=== PATIENT | female | born 1990 | race Asian ===

== ENCOUNTER 2016-12-05 23:24 | Emergency (ER) | payer OTHER ==
[2016-12-06] MEDS ORDERED: HYDROcodone/ACETAMIN 5-325 MG* 1 TAB PO ONE ×2 (00:59→01:15)
[2016-12-06 01:09] LABS: Hematocrit 37 % (35-47); Hemoglobin 12.4 g/dl (12.0-16.0); Mean Corpuscular HGB Conc 34 g/dl (31-36); Mean Corpuscular Hemoglobin 30 pg (27-31); Mean Corpuscular Volume 88 fL (80-97); Mean Platelet Volume 8 um3 (7.4-10.4); Red Blood Count 4.15 10^6/ul (4.0-5.4); Red Cell Distribution Width 12 % (10.5-15)
--- NOTE | 2016-12-06 01:14 | ED ---
fidelina Monae Timothy, scribed for Jonny Novoa MD on 12/06/16 at 0038 . Bite Injury/Animal - HPI Summary HPI Summary: Jennie Johnson is a 26 yo female presenting to [facility] with increased 9/10 pain in her left thumb and swelling S/P a dog bite 3 days ago (12/02/16). She is currently on ABx for her condition. Her Hx includes migraines. - History of Current Complaint Stated Complaint: DOG BITE Time Seen by Provider: 12/06/16 00:29 Hx Obtained From: Patient Onset of Injury: Happened days ago, Still Present Type of Bite: Pet Hx of Bite: Unprovoked Has Animal Been Immunized?: Unknown Severity Initially: Moderate Severity Currently: Moderate Pain Intensity: 9 Pain Scale Used: 0-10 Numeric Character: Puncture Aggravating Factor(s): Nothing Alleviating Factor(s): Nothing Associated Signs And Symptoms: Positive: Swelling Animal Available for Observation: No Animal Control Notified: No - Allergies/Home Medications Allergies/Adverse Reactions: Allergies Allergy/AdvReac Type Severity Reaction Status Date / Time Red Dye Allergy Rash Verified 12/05/16 23:35 PMH/Surg Hx/FS Hx/Imm Hx Neurological History: Reports: Hx Migraine Infectious Disease History: No Infectious Disease History: Denies: Traveled Outside the [place] in Last 30 Days - Social History Occupation: Student Lives: Alone Review of Systems Constitutional: Negative Eyes: Negative ENT: Negative Cardiovascular: Negative Respiratory: Negative Gastrointestinal: Negative Genitourinary: Negative Positive: Other - left thumb pain, swelling Skin: Negative Neurological: Negative Psychological: Normal All Other Systems Reviewed And Are Negative: Yes Physical Exam Triage Information Reviewed: Yes Vital Signs On Initial Exam: Initial Vitals Temp Pulse Resp BP Pulse Ox 99.2 F 69 18 126/84 100 12/05/16 23:31 12/05/16 23:31 12/05/16 23:31 12/05/16 23:31 12/05/16 23:31 Vital Signs Reviewed: Yes Appearance: Positive: Well-Appearing, No Pain Distress Skin: Positive: Warm Eyes: Positive: MAL ENT: Positive: Hearing grossly normal Respiratory/Lung Sounds: Positive: Breath Sounds Present Musculoskeletal: Positive: Other - rt thumb minimal erythema no purulence Neurological: Positive: Alert, Oriented to Person Place, Time Psychiatric: Positive: Affect/Mood Appropriate Diagnostics - Vital Signs Vital Signs Temp Pulse Resp BP Pulse Ox 12/05/16 23:31 99.2 F 69 18 126/84 100 - Laboratory Lab Results: Lab Results 12/06/16 Range/Units 00:58 WBC 8.0 (3.5-10.8) 10^3/ul RBC 4.15 (4.0-5.4) 10^6/ul Hgb 12.4 (12.0-16.0) g/dl Hct 37 (35-47) % MCV 88 (80-97) fL MCH 30 (27-31) pg MCHC 34 (31-36) g/dl RDW 12 (10.5-15) % Plt Count 252 (150-450) 10^3/ul MPV 8 (7.4-10.4) um3 Neut % (Auto) 58.4 (38-83) % Lymph % (Auto) 30.9 (25-47) % [place] % (Auto) 7.0 (1-9) % Eos % (Auto) 2.8 (0-6) % Baso % (Auto) 0.9 (0-2) % Absolute Neuts (auto) 4.7 (1.5-7.7) 10^3/ul Absolute Lymphs (auto) 2.5 (1.0-4.8) 10^3/ul Absolute Monos (auto) 0.6 (0-0.8) 10^3/ul Absolute Eos (auto) 0.2 (0-0.6) 10^3/ul Absolute Basos (auto) 0.1 (0-0.2) 10^3/ul Absolute Nucleated RBC 0 10^3/ul Nucleated RBC % 0 Result Diagrams: 12/06/16 00:58 Lab Statement: Any lab studies that have been ordered have been reviewed, and results considered in the medical decision making process. Bite Injury Course/Dx - Course Assessment/Plan: Jennie Johnson is a 26 yo female presenting to [facility] with a swollen and painful left thumb after a dog bite. After review of her lab work, she will be discharged with instructions to continue her current treatment. - Diagnoses Provider Diagnosis: Dog bite of left thumb Discharge - Discharge Plan Condition: Stable Disposition: HOME Patient Education Materials: Animal Bite (ED) Referrals: [facility]OOGIE Sandoval [Primary Care Provider] - Additional Instructions: Follow up with [facility] regarding your dog bite in 2 days. Continue your current treatment until then. Return to the emergency department with any new or worsening symptoms. The documentation as recorded by the fidelina white Timothy accurately reflects the service I personally performed and the decisions made by me, Jonny Novoa MD.
[2016-12-06 01:46] VITALS: BP 111/75
== END 2016-12-06 01:45 | disposition home or self-care (01) ==
LOC: EDBD → ED 23:24 → MERGE 23:24 → ED 12-06 01:45
DX: S61.052A Open bite of left thumb without damage to nail, initial encounter (principal); W54.0XXA Bitten by dog, initial encounter; Y93.9 Activity, unspecified; Y92.9 Unspecified place or not applicable; Y99.9 Unspecified external cause status
CPT/HCPCS: 36415; 85025; 99282